=== PATIENT | male | born 1955 | race Caucasian/White ===

== ENCOUNTER 2023-06-23 13:45 | Emergency (ER) | payer MEDICARE, SELFPAY ==
[2023-06-23 13:48] VITALS: BP 178/91; PULSE 81; RESP 18; TEMP 37.4; O2SAT 97; BMI 26.5
--- NOTE | 2023-06-23 14:00 | XR_ITS ---
The [address] [address] Patient Name: FRANCOIS ERNST MRN: [id number] date: 1955 Sex: M Assigned Patient Location: ER Current Patient Location: ER Accession/Order Number: [id number] Exam Date: 06/23/2023 14:02 Report Date: 06/23/2023 14:36 At the request of: PARDEEP FLANAGAN Procedure: XR shoulder LT min 2V EXAM: XR shoulder LT min 2V HISTORY: shoulder injury COMPARISON: None. TECHNIQUE: 3 views left shoulder. FINDINGS/IMPRESSION: Minimal degenerative change left acromioclavicular and glenohumeral joint. No fracture or dislocation. Left fifth posterolateral mildly displaced rib fracture is seen with no definite pneumothorax. Electronically authenticated by: JOLENE ELI Date: 06/23/2023 14:36
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
== END 2023-06-23 15:28 | disposition home or self-care (01) ==
PROVIDERS: Emergency Provider Emergency Medicine
DX: S22.32XA Fracture of one rib, left side, initial encounter for closed fracture (principal); V28.49XA Other motorcycle driver injured in noncollision transport accident in traffic accident, initial encounter
CPT/HCPCS: 73030; 99283